=== PATIENT | male | born 1975 | race Caucasian/White ===

== ENCOUNTER → 2023-11-19 | Emergency (ER) | payer OTHER ==
[~2023-11-19] VITALS: Ht 182.9 cm; Wt 176.9 kg
[~2023-11-19] MED LIST: MECL-109 PO; METO-290 PO
[2023-11-19 19:38] VITALS: BP_SYST 188; PULSE 76; RESP 20; TEMP 99.6; O2SAT 98
[2023-11-19] MEDS: MECLIZINE HCL 25 MG TABLET (ANITVERT) PO ONE (20:22)
[2023-11-19] MEDS: METOCLOPRAMIDE HCL 10 MG TABLET PO ONE (20:22)
[2023-11-19 23:00] VITALS: BP_SYST 162; PULSE 80; RESP 16; TEMP 98.6; O2SAT 99
== END | disposition home or self-care (01) ==
LOC: SED 19:30
DX: H81.399 Other peripheral vertigo, unspecified ear (principal); R11.0 Nausea; I10 Essential (primary) hypertension; Z79.899 Other long term (current) drug therapy
CPT/HCPCS: 99285; J8597